=== PATIENT | female | born 2000 | race Asian ===

== ENCOUNTER 2021-11-25 14:15 | Emergency (ER) | payer BC, OTHER ==
[~2021-11-25] VITALS: Ht 165.1 cm; Wt 93.4 kg
[2021-11-25 15:20] VITALS: BP 119/77
[2021-11-25] MEDS ORDERED: cefTRIAXone SOD 1,000 MG VL IM ONE (15:45)
[2021-11-25] MEDS ORDERED: ACETAMINOPHEN 500 MG TAB PO ONE (15:45)
[2021-11-25] MEDS ORDERED: AMOX-277 PO (15:59)
[2021-11-25] MEDS ORDERED: PROM1SOL4 PO (15:59)
== END 2021-11-25 16:16 | disposition home or self-care (01) ==
LOC: ER 14:15
DX: J03.90 Acute tonsillitis, unspecified (principal); H66.91 Otitis media, unspecified, right ear
CPT/HCPCS: 71046; 96372; 99283; J0696